=== PATIENT | female | born 1975 | race Caucasian/White ===

== ENCOUNTER 2019-05-19 18:18 | Emergency (ER) | payer OTHER ==
[~2019-05-19] VITALS: Ht 165.1 cm; Wt 103.9 kg
[2019-05-19 18:34] VITALS: Ht 165.1 cm; Wt 103.9 kg
[2019-05-19 19:40] VITALS: BP 146/95
== END 2019-05-19 19:40 | disposition home or self-care (01) ==
LOC: ED 18:18
DX: S42.432A Displaced fracture (avulsion) of lateral epicondyle of left humerus, initial encounter for closed fracture (principal); W18.30XA Fall on same level, unspecified, initial encounter; Y93.51 Activity, roller skating (inline) and skateboarding; Y92.89 Other specified places as the place of occurrence of the external cause; Y99.8 Other external cause status
CPT/HCPCS: Q0092; Q0162